=== PATIENT | male | born 1945 | race Caucasian/White ===

== ENCOUNTER 2020-05-06 09:07 | Outpatient (CLI) | payer MEDICARE, OTHER, SELFPAY ==
--- NOTE | 2020-05-06 08:30 | DI.RAD_ITS ---
EXAM: XR SHOULDER LT COMPLETE 2+V CLINICAL HISTORY: Left shoulder pain. TECHNIQUE: 2D digital imaging was performed. COMPARISON: No exams were available for comparison FINDINGS: There are marked degenerative changes seen at the glenohumeral joint characterized by joint space jesús rowing, subchondral sclerosis and periarticular spurring. There is flattening of the articular surfa erika of both the glenoid and the humeral head. Mild degenerative changes are seen at the acromioclavi cular joint. No acute fracture or dislocation is present. The soft tissues are unremarkable. IMPRESSION: Marked degenerative changes seen at the glenohumeral joint as described. DATA REPOSITORY: RADIATION DOSE DELIVERED:
== END 2020-05-06 09:27 ==
PROVIDERS: Referring Provider Student in an Organized Health Care Education/Training Program; Visit Provider Student in an Organized Health Care Education/Training Program
DX: M19.012 Primary osteoarthritis, left shoulder (principal); M24.512 Contracture, left shoulder; M75.22 Bicipital tendinitis, left shoulder; M75.102 Unspecified rotator cuff tear or rupture of left shoulder, not specified as traumatic
CPT/HCPCS: 99204; 73030

== ENCOUNTER 2020-05-13 01:12 | Outpatient (CLI) | payer MEDICARE, OTHER, SELFPAY ==
--- NOTE | 2020-05-13 07:45 | DI.CT_ITS ---
EXAM: CT UPPER EXTREMITY LT WO CLINICAL HISTORY: Preop templating,ARTHRITIS LT GLENOHUMERAL JOINT,M19.012. TECHNIQUE: Imaging Protocol: Axial computed tomography images with coronal and sagittal reformatted images were created and reviewed. COMPARISON: No exams were available for comparison FINDINGS: There are marked degenerative changes seen at the glenohumeral joint characterized by joint space jesús rowing, subchondral sclerosis and cysts, and periarticular spurring. There does appear to be elevati on of the humeral head raising the question of chronic rotator cuff tear. There are mild degenerativ e changes seen at the acromioclavicular joint. Soft tissues are grossly unremarkable. 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 RADIATION DOSE DELIVERED: 703.1mGy.cm Total DLP 703.1mGy.cm Total DLP DATA REPOSITORY: All CT scans at this facility are submitted to the National Radiology Data Registry (NRDR) Dose Index Registry (DIR) with the [employer] ([employer]). RADIATION OPTIMIZATION: All CT scans at this facility use at least one of these dose optimization te chniques: automated exposure control; mA and/or kV adjustment per patient size (includes targeted exa ms where dose is matched to clinical indication); or iterative reconstruction.
== END 2020-05-13 01:32 ==
PROVIDERS: Visit Provider Student in an Organized Health Care Education/Training Program
DX: M19.012 Primary osteoarthritis, left shoulder (principal)
CPT/HCPCS: 73200